=== PATIENT | male | born 1925 | race Caucasian/White ===

== ENCOUNTER → 2017-03-12 | Outpatient (CLI) | payer OTHER ==
[~2017-03-12] VITALS: Ht 177.8 cm; Wt 59.0 kg
[~2017-03-12] MED LIST: ANCEF 1GM1 GM/50 M1 IV; APAP500 PO; CYMBALTA30 MG PO; FISHOIL PO; MAALOX ADVANCE355 M1 PO; MELOXICAM7.5 MG PO; MULTIVITAMINS PO; NABUMETONE 500500 M1 PO; NABUMETONE 750750 M1 PO; NORCO 7.5-3251 EACH PO; PANTOPRAZOLE SO40 M1 PO; PERCOCET 10-321 EAC1 PO; PERCOCET 7.5-31 EACH PO; PRILOSEC40 MG PO; RELAFEN500 MG PO; RELAFEN750 MG PO; TRAMADOL 50 MG50 MG PO; XANAX 0.5 MG0.5 M1 PO
--- NOTE | ~2017-03-12 | HPC ---
[facility] [address] [place] [address] PAIN MANAGEMENT CONSULTATION Name: SAHILMIGUEL ANGELFRANCESCA C Room #: REG [facility]#: [id number] Admission: 03/12/17 Attend Phys: Bertram Lake MD Discharge: Date of : [birth year] Report #: [id number] THIS REPORT FOR: //name// CC: Domi Garcia FINE HAIRER Bertram Lake DATE OF SERVICE: 03/12/2017 REFERRING PHYSICIAN: Kay Garcia, nurse practitioner. CHIEF COMPLAINT: Right chest wall pain. HISTORY OF PRESENT ILLNESS: As you know, the patient is a very pleasant 89-year-old male who returns today in followup visit with acute onset of right chest wall pain. The patient states he has suffered no injury and no trauma that may have led to symptoms. He states movement exacerbates his symptoms; rest and relaxation tends to improve the pain. He states the pain is stabbing when he moves or breathes or coughs or sneezes. Otherwise, medications are providing only temporary improvement. He indicates again no injury, no trauma to the area, but is concerned of increasing right chest wall pain that will not improve on its own. He has referred himself back to our clinic for evaluation. ALLERGIES: No known drug allergies. CURRENT MEDICATIONS: Oxycodone, pantoprazole, acetaminophen and tramadol. SOCIAL HISTORY: The patient denies tobacco, IV or illicit drug use. He is retired, retired years ago. He is just accompanied by a family member present in room today. IMAGING: No new imaging available. PHYSICAL EXAMINATION: VITAL SIGNS: Blood pressure 120/60, pulse 72 and respiratory rate 14, unlabored. The patient is 96% on room air. Height 5 feet 10 inches tall, weight 130 pounds and BMI calculated at 18.7. GENERAL: Well developed, well nourished, well hydrated and thin, 89-year-old male appearing his stated age. He is in moderate distress secondary to pain, placing current pain score of 10/10. HEENT: Normocephalic, atraumatic. Pupils equal, round and reactive to light. Extraocular muscles are intact. Sclerae nonicteric, without injection. NEUROLOGIC: Cranial nerves 2-12 grossly intact. Speech is fluent. The patient deemed a good historian. LUNGS: Clear. No wheeze, rhonchi or rales. There is guarding noted with deep inhalation and forced exhalation on the right, when compared to the left. Pain [facility] [address] [place] [address] PAIN MANAGEMENT CONSULTATION Name: FRANCESCA SPANGLER Room #: REG [facility] Terrence#: [id number] Admission: 03/12/17 Attend Phys: Bertram Lake MD Discharge: Date of : [birth year] Report #: [id number] is elicited with motion. There is also palpatory tenderness over the lower right ribs, around the 11 and 12 on the right. There is no skin color changes or texture changes in the area. EXTREMITIES: Lower extremity strength and upper extremity strength equal and symmetrical. ASSESSMENT: 1. Right chest wall pain. 2. Myofascial pain. PLAN: 1. The patient has referred himself back to our clinic with increasing right chest wall pain. The patient has no inciting injury or trauma that may have led to the symptom development. He states that his pain is exacerbated with deep inhalation and exhalation and also is exacerbated with certain movements. There is no dermatomal distribution to the patient's symptomology. I am concerned of potential spontaneous fracture that could be thoracic level, also a concern of spontaneous rib fracture with coughing and/or sneezing least recently. I would recommend the patient undergo x-ray imaging of the right chest wall, a full rib series to evaluate the area. We will review this x-ray imaging once it is available and discuss this with the patient via telephone either tomorrow or the next day, depending on the patient's return phone call. 2. We would recommend changes in medication therapy. The following changes were made in hopes of improving pain and providing analgesic benefit. 3. We will start the patient on nabumetone 500 mg dose 1 tab p.o. t.i.d. I have given the patient #90 tablets. I advised the patient to watch for dyspepsia, worsening blood pressure or lower extremity edema with the use of the medication. If he notes any side effects, discontinue immediately and call for further instructions. 4. The patient will be started on oxycodone 10/325 one tab p.o. q. 6 hours p.r.n. for pain. I have given the patient #90 tablets, advised to take the medication when pain is intolerable and not to rely on the medication prophylactically. 5. The patient will follow up with his typical pain physician, Dr. Bertram Lake, in the next 2 weeks. We will establish an appointment with Dr. Lake to evaluate this right chest wall pain further. X-ray imaging obtained today will provide us a greater information. <ELECTRONICALLY SIGNED> By: Timothy Ocasio DO 03/14/17 [id number] Timothy Ocasio DO /nt
[2017-03-12 10:41] VITALS: BP 109/59
[2017-03-12 10:43] VITALS: BP 120/60
== END | disposition home or self-care (01) ==
LOC: PAIN 10-11 06:25
DX: R07.89 Other chest pain (principal); M79.1 Myalgia; Z87.891 Personal history of nicotine dependence; M19.91 Primary osteoarthritis, unspecified site

== ENCOUNTER → 2017-04-03 | Outpatient (CLI) | payer OTHER ==
[~2017-04-03] VITALS: Ht 177.8 cm; Wt 57.6 kg
--- NOTE | ~2017-04-03 | HPC ---
[facility] [address] [place] [address] PAIN MANAGEMENT CONSULTATION Name: SAHILRONANJAYCOBMARCOSFRANCESCA C Room #: REG [facility]#: [id number] Admission: 04/03/17 Attend Phys: Caprice West MD Discharge: Date of : [birth year] Report #: [id number] THIS REPORT FOR: //name// CC: Domi KNOTT physician/PCP Kay West Seen on 04/03/[address] West. FOLLOWUP COMPLAINT: The back pain is better, but I am having pain in my left arm and having difficulty moving it. FOLLOWUP HISTORY: The patient is an 89-year-old gentleman who has been seen in the pain clinic. He was initially seen for pain involving the right chest wall. He feels overall that pain is improved somewhat. He is having pain and discomfort at this juncture involving his left arm. He is loosing the ability to his arm. He is having loss of range of motion. He is having particular problem with putting on his T-shirt. He is unable to move his arm, which is limited. He notes pain and discomfort in the front deltoid area. He denies any falls. He denies any numbness or tingling sensations down in the left sensory distribution. Pain is primarily in the shoulder joint area. PHYSICAL EXAMINATION: VITAL SIGNS: Blood pressure 129/68, pulse 61, respiratory rate 14, room air saturation 99%, height 5 feet 10 inches, weight 177 pounds, BMI is 18.2. GENERAL: The patient states that he has a lost some weight and has recently been hospitalized secondary to gastric problems. EXTREMITIES: The patient has pain and discomfort in the left anterior shoulder area. Palpation in the area of the biceps tendon causes pain and discomfort in his arm. Pressure in the area of the biceps in this area reproduces pain and discomfort as well. He is unable to abduct his arm greater than about 45 degrees. He carries his left hand about a 45 degree band at the elbow. Straightening of his arm is possible, but he notes increased pain and discomfort up in the shoulder area. IMPRESSION: 1. Myofascial pain involving the left shoulder. 2. Weight loss secondary to gastroesophageal reflux type disease. The patient states that he was hospitalized because of this and is trying to gain his weight back. 3. Improved right chest wall pain and myofascial pain. RECOMMENDATION: The patient feels that the nonsteroidal anti-inflammatory medication continues to be helpful. He has pain and discomfort in the left anterior shoulder. Palpation in the area of the biceps brachii long head does cause some pain and discomfort in the area as well as in bicep. The patient has [facility] [address] [place] [address] PAIN MANAGEMENT CONSULTATION Name: FRANCESCA SPANGLER Room #: REG [facility]#: [id number] Admission: 04/03/17 Attend Phys: Caprice West MD Discharge: Date of : [birth year] Report #: [id number] decreased range of motion with flexion and extension, . The patient is unable to lift his hand over his head. He is limited to about 45 degrees of abduction. Recommendations, we discussed treatment options with the patient. Risks and benefits of a trigger point injection to the affected area using local anesthetic and steroid was discussed. Possible complication of the procedure, which could include increased muscle soreness, infection, bleeding, nerve damage were explained. The patient elects to proceed. PROCEDURE NOTE: The patient was placed in the spine position. His left shoulder was sterilely prepped with a chlorhexidine solution, then allowed to dry. Palpation in the deltoid area near the biceps brachii was palpated. This reproduced the patient's discomfort. A total of 10 mL of 0.5% bupivacaine and 40 mg triamcinolone was injected. The patient tolerated the procedure well. There were no complications. He will follow up in the future as needed. The patient will be given a script for physical therapy. Hopefully, he will note improvement and increase his range of motion while decreasing his pain as well. We would like to thank you for letting us participate in his care. We hope he continues to improve. By: [id number] Caprice West MD /rafael
[2017-04-03 11:14] VITALS: BP 129/68
== END | disposition home or self-care (01) ==
LOC: PAIN 07:06
DX: M79.1 Myalgia (principal); K21.9 Gastro-esophageal reflux disease without esophagitis; R07.89 Other chest pain; R63.4 Abnormal weight loss; Z87.891 Personal history of nicotine dependence

== ENCOUNTER → 2017-04-15 | Outpatient (CLI) | payer OTHER ==
[2017-04-17 11:24] LABS: ABSOLUTE NEUTROPHILS 8.2 thou/uL (1.4-8.2); BASOPHILS 0.5 % (0.0-2.0); EOSINOPHILS 4.3 % (0.0-3.0); HEMATOCRIT 36.2 % (42.0-52.0); HEMOGLOBIN 12.1 gm/dL (14.0-18.0); LYMPHOCYTES 11.6 % (24.0-44.0); MCH 31.3 pg (26.0-34.0); MCHC 33.5 g/dL (28.0-37.0); MCV 93.4 fL (80.0-100.0); PLATELET COUNT 323 thou/uL (150-400); POLYS 76.6 % (36.0-66.0); RBC 3.88 mil/uL (4.50-6.00); RDW 15.7 % (10.5-14.5); WBC 10.8 thou/uL (4.0-11.0)
[2017-04-17 11:26] LABS: MANUAL DIFF NO
[2017-04-17 11:47] LABS: ALBUMIN 3.4 g/dL (3.4-5.0); CALCIUM 8.6 mg/dL (8.5-10.1); TOTAL BILIRUBIN 0.5 mg/dL (<0.1-1.0); TOTAL PROTEIN 7.5 g/dL (6.4-8.2)
== END ==
LOC: SEN 15:30
PROVIDERS: Nurse Practitioner Gerontology
DX: R63.4 Abnormal weight loss (principal)